=== PATIENT | male | born 1980 | race Asian ===

== ENCOUNTER → 2023-09-06 08:06 | Outpatient (REF) | payer OTHER, SELFPAY ==
--- NOTE | 2023-09-06 08:21 | CA_ITS ---
Acquisition Time: 2023-09-06 08:33:48 Total Exercise Time: 00:10:23 Test Indications: CP Medications: SEE H Protocol: KADY Max HR: 162 BPM 92% of Pred: 176 BPM Max BP: 168/078 mmHG Max Work Load: 12.3 METS Exercise stress test exercuse 10 min 32 sec of Kady protocol achieving 92% MPHR, with mild SOB, no chest discomfort, without arrhythmias, with blunted BP response, with T wave inversion in V6 during recovery. Test reviewed with Dr. Quiles Referred By: Olivier Jones Overread By: Luna Jacksno
== END ==
LOC: HO.CARD 08:06
PROVIDERS: Visit Provider Internal Medicine Cardiovascular Disease
DX: R07.9 Chest pain, unspecified (principal)
CPT/HCPCS: 93017

== ENCOUNTER → 2023-09-06 08:21 | Outpatient (BNV) | payer OTHER, SELFPAY | PROVIDERS: Visit Provider Nurse Practitioner | DX: R06.02 Shortness of breath (principal) | CPT/HCPCS: 93016; 93018 ==